=== PATIENT | female | born 1990 | race African-American/Black ===

== ENCOUNTER 2022-12-25 13:09 | Emergency (ER) | payer OTHER ==
[~2022-12-25] VITALS: Ht 149.9 cm; Wt 59.0 kg
[2022-12-25 13:22] VITALS: BP 115/68; TEMP 98.7; O2SAT 100
[2022-12-25 13:24] VITALS: PULSE 82; RESP 16
== END 2022-12-25 16:14 | disposition home or self-care (01) ==
LOC: ER 13:28
DX: Z00.00 Encounter for general adult medical examination without abnormal findings (principal); F12.10 Cannabis abuse, uncomplicated; F15.10 Other stimulant abuse, uncomplicated
CPT/HCPCS: 99281

== ENCOUNTER 2024-09-14 09:01 | Emergency (ER) | payer SELFPAY ==
[~2024-09-14] VITALS: Ht 160 cm; Wt 63.0 kg
[2024-09-14 09:05] VITALS: O2SAT 98
[2024-09-14 09:43] LABS: BASOPHILS % 0.6 % (0.0-2.0); EOSINOPHILS % 2.4 % (0.0-5.0); HEMATOCRIT. 35.9 % (36.0-48.0); HEMOGLOBIN. 11.5 g/dL (12.0-16.0); MEAN CORPUSCULAR HEMOGLOBIN 26.7 pg (28.0-32.0); MEAN CORPUSCULAR VOLUME 83.7 fL (81.0-99.0); MONOCYTES % 9.1 % (2.0-8.0); NEUTROPHILS % 65.9 % (40.0-76.0); PLATELET 316 x1000/uL (130-400); RED BLOOD CELL COUNT 4.29 mill/uL (4.2-5.4); WHITE BLOOD COUNT 9.4 x1000/uL (4.5-11.0)
[2024-09-14 09:58] LABS: CHLORIDE 101 mEq/L (98-107); POTASSIUM 3.7 mEq/L (3.5-5.1); SODIUM 136 mEq/L (136-145)
[2024-09-14 09:59] LABS: CALCIUM 9.1 mg/dL (8.7-10.4); CARBON DIOXIDE 26 mEq/L (21-32)
[2024-09-14 10:04] LABS: CREATININE 0.7 mg/dL (0.6-1.0); GLUCOSE 79 mg/dL (70-105); UREA NITROGEN BLOOD 12 mg/dL (9-23)
[2024-09-14 10:05] LABS: ETHANOL BLOOD < 10 mg/dL (<10)
[2024-09-14 10:06] LABS: ACETAMINOPHEN < 2 ug/mL (10-30)
[2024-09-14 10:24] LABS: HCG SCREEN NEGATIVE
[2024-09-14 11:02] VITALS: BP 130/72; PULSE 69; RESP 18; TEMP 36.7; O2SAT 98
== END 2024-09-14 11:40 | disposition home or self-care (01) ==
LOC: ER 09:01
DX: R44.1 Visual hallucinations (principal); F12.90 Cannabis use, unspecified, uncomplicated; Z79.899 Other long term (current) drug therapy
CPT/HCPCS: 36415; 80048; 80307; 80320; 80329; 84703; 85025; 99283; G0480

== ENCOUNTER 2024-09-28 08:24 | Emergency (ER) | payer SELFPAY ==
[~2024-09-28] VITALS: Ht 165.1 cm; Wt 59.0 kg
[2024-09-28 08:40] VITALS: O2SAT 100
[2024-09-28] MEDS ORDERED: LORAZEPAM 2MG/ML INJ IM ONE (08:45)
[2024-09-28] MEDS: LORAZEPAM 2MG/ML UD SYRINGE IM SCH (08:49)
[2024-09-28] MEDS: HALOPERIDOL LACTATE 5MG/ML VIAL IM ONE (08:50)
[2024-09-28 09:18] LABS: BASOPHILS % 0.7 % (0.0-2.0); EOSINOPHILS % 1.2 % (0.0-5.0); HEMATOCRIT. 35.6 % (36.0-48.0); HEMOGLOBIN. 11.5 g/dL (12.0-16.0); LYMPHOCYTES % 15.8 % (20.0-50.0); MEAN CORPUSCULAR HEMOGLOBIN 25.8 pg (28.0-32.0); MEAN CORPUSCULAR HGB CONC 32.2 g/dL (31.0-37.0); MEAN CORPUSCULAR VOLUME 80.1 fL (81.0-99.0); MEAN PLATELET VOLUME 8.2 fl (7.4-10.4); NEUTROPHILS % 76.3 % (40.0-76.0); PLATELET 496 x1000/uL (130-400); RED BLOOD CELL COUNT 4.44 mill/uL (4.2-5.4); RED CELL DISTRIBUTION WIDTH 14.7 % (11.6-14.6); WHITE BLOOD COUNT 13.8 x1000/uL (4.5-11.0)
[2024-09-28 09:25] LABS: CHLORIDE 105 mEq/L (98-107); HCG SCREEN NEGATIVE; POTASSIUM 3.6 mEq/L (3.5-5.1); SODIUM 139 mEq/L (136-145)
[2024-09-28 09:26] LABS: CALCIUM 9.9 mg/dL (8.7-10.4); CARBON DIOXIDE 24 mEq/L (21-32)
[2024-09-28 09:31] LABS: CREATININE 0.8 mg/dL (0.6-1.0); GLUCOSE 96 mg/dL (70-105); UREA NITROGEN BLOOD 8 mg/dL (9-23)
[2024-09-28 09:32] LABS: ETHANOL BLOOD < 10 mg/dL (<10)
[2024-09-28 09:33] LABS: ACETAMINOPHEN < 2 ug/mL (10-30)
[2024-09-28 09:50] LABS: CLARITY URINE CLEAR (CLEAR); COLOR URINE YELLOW (YELLOW); GLUCOSE URINE NEGATIVE (NEGATIVE); KETONES URINE NEGATIVE (NEGATIVE); LEUKOCYTE ESTERASE URINE TRACE (NEGATIVE); NITRITE URINE NEGATIVE (NEGATIVE); OCCULT BLOOD URINE NEGATIVE (NEGATIVE); PROTEIN URINE NEGATIVE (NEGATIVE); SPECIFIC GRAVITY URINE 1.013 (1.005-1.030)
[2024-09-28 10:01] LABS: *AMPHETAMINES SCREEN URINE PRESUMPTIVE POSITIVE (NEGATIVE); *BARBITURATES SCREEN URINE NEGATIVE (NEGATIVE); *BENZODIAZEPINES SCREEN URINE NEGATIVE (NEGATIVE); *COCAINE SCREEN URINE NEGATIVE (NEGATIVE); METHADONE URINE SCREEN NEGATIVE (NEGATIVE)
[2024-09-28 10:02] LABS: CANNABINOID URINE SCREEN PRESUMPTIVE POSITIVE (NEGATIVE); OPIATES URINE SCREEN NEGATIVE (NEGATIVE); PHENCYCLIDINE URINE SCREEN NEGATIVE (NEGATIVE)
[2024-09-28 10:07] LABS: BACTERIA URINE 2+; RBC URINE 0-2 /hpf (0-2); SQUAMOUS EPITHELIAL CELL URINE 2+ /lpf (RARE/1+); YEAST URINE NONE SEEN
[2024-09-28 10:18] LABS: ECSTASY MDMA SCREEN URINE CONF.TEST INDICATED (NEGATIVE)
[2024-09-28] MEDS ORDERED: CEPHALEXIN 250MG CAPSULE PO STA (10:57)
[2024-09-28] MEDS: MUPIROCIN 2% OINT 15GM TOP SCH (14:00)
[2024-09-28] MEDS: CEPHALEXIN 250MG CAPSULE PO SCH (15:02)
[2024-09-28] MEDS: OLANZAPINE 5MG TABLET PO SCH (20:52)
[2024-09-29] MEDS ORDERED: CEPH500T MT (13:02)
[2024-09-29 15:06] VITALS: BP 124/67; PULSE 94; RESP 14; TEMP 36.9; O2SAT 98
== END 2024-09-29 15:17 | disposition home or self-care (01) ==
LOC: ER 08:24
DX: R45.1 Restlessness and agitation (principal); N61.0 Mastitis without abscess; F14.10 Cocaine abuse, uncomplicated; F12.90 Cannabis use, unspecified, uncomplicated; N39.0 Urinary tract infection, site not specified; F15.90 Other stimulant use, unspecified, uncomplicated; Z20.822 Contact with and (suspected) exposure to COVID-19; Z79.899 Other long term (current) drug therapy
CPT/HCPCS: 80305; 80048; 81003; 80307; 80329; 80320; 84703; 85025; 36415; 96372; 99285; 87426; J1630; J2060; Z7610 ×2; G0480

== ENCOUNTER 2024-10-23 03:52 | Emergency (ER) | payer SELFPAY ==
[~2024-10-23] VITALS: Ht 149.9 cm; Wt 53.0 kg
[~2024-10-23 03:52] MED LIST: CEPH500T MT
[2024-10-23 04:04] VITALS: TEMP 36.6; O2SAT 98
[2024-10-23 08:03] LABS: HEMATOCRIT. 34.2 % (36.0-48.0); HEMOGLOBIN. 10.8 g/dL (12.0-16.0); MEAN PLATELET VOLUME 8.2 fl (7.4-10.4); PLATELET 539 x1000/uL (130-400); RED BLOOD CELL COUNT 4.33 mill/uL (4.2-5.4); RED CELL DISTRIBUTION WIDTH 15.4 % (11.6-14.6)
[2024-10-23 08:13] LABS: CREATININE 0.7 mg/dL (0.6-1.0)
[2024-10-23 08:14] LABS: UREA NITROGEN BLOOD 12 mg/dL (9-23)
[2024-10-23 08:15] LABS: ASPARTATE AMINOTRANSFERASE 18 IU/L (<34)
[2024-10-23 08:16] LABS: BILIRUBIN TOTAL 0.5 mg/dL (0.1-1.0); PROTEIN TOTAL 7.6 g/dL (6.0-8.3)
[2024-10-23 08:17] LABS: HCG SCREEN NEGATIVE
[2024-10-23 08:39] VITALS: TEMP 97.8
[2024-10-23] MEDS: ACETAMINOPHEN 325MG TABLET PO ONE (08:39)
[2024-10-23 08:40] VITALS: BP 115/79; PULSE 64; RESP 18; O2SAT 100
[2024-10-23 08:55] LABS: BAND% 41.0 % (1.0-6.0); BASOPHILS % MANUAL 1.0 % (0.0-2.0); EOSINOPHILS % MANUAL 4.0 % (0.0-5.0); LYMPHOCYTES % MANUAL 17.0 % (20.0-60.0); MONOCYTES % MANUAL 16.0 % (2.0-8.0); NEUTROPHILS % MANUAL 21.0 % (45.0-75.0); PLATELET ESTIMATE INCREASED
== END 2024-10-23 09:00 | disposition home or self-care (01) ==
LOC: ER 03:52
DX: M25.561 Pain in right knee (principal); R10.13 Epigastric pain; R51.9 Headache, unspecified
CPT/HCPCS: 36415; 73562; 80053; 81025; 84703; 85025; 93971; 99284

== ENCOUNTER 2024-12-23 08:06 | Emergency (ER) | payer MEDICAID ==
[~2024-12-23] VITALS: Ht 167.6 cm; Wt 50.0 kg
[2024-12-23 08:14] VITALS: O2SAT 98
[2024-12-23 08:42] LABS: BASOPHILS % 0.7 % (0.0-2.0); EOSINOPHILS % 4.0 % (0.0-5.0); HEMATOCRIT. 34.5 % (36.0-48.0); HEMOGLOBIN. 10.5 g/dL (12.0-16.0); LYMPHOCYTES % 11.2 % (20.0-50.0); MEAN PLATELET VOLUME 8.5 fl (7.4-10.4); MONOCYTES % 6.4 % (2.0-8.0); NEUTROPHILS % 77.7 % (40.0-76.0); PLATELET 447 x1000/uL (130-400); RED BLOOD CELL COUNT 4.43 mill/uL (4.2-5.4); RED CELL DISTRIBUTION WIDTH 16.8 % (11.6-14.6)
[2024-12-23 08:53] LABS: HCG SCREEN NEGATIVE
[2024-12-23 08:56] LABS: CREATININE 0.7 mg/dL (0.6-1.0); ETHANOL BLOOD < 10 mg/dL (<10); UREA NITROGEN BLOOD 12 mg/dL (9-23)
[2024-12-23 09:02] LABS: CLARITY URINE CLEAR (CLEAR); COLOR URINE YELLOW (YELLOW); GLUCOSE URINE NEGATIVE (NEGATIVE); KETONES URINE NEGATIVE (NEGATIVE); LEUKOCYTE ESTERASE URINE NEGATIVE (NEGATIVE); NITRITE URINE NEGATIVE (NEGATIVE); OCCULT BLOOD URINE NEGATIVE (NEGATIVE); PH URINE 5.5 (4.5-8.0); PROTEIN URINE NEGATIVE (NEGATIVE); SPECIFIC GRAVITY URINE 1.020 (1.005-1.030); UROBILINOGEN URINE 0.2 E.U./dL (0.2-1.0)
[2024-12-23] MEDS: MULTIVITAMINS,THER W-MINERALS TABLET PO SCH (09:13)
[2024-12-23 09:17] LABS: *AMPHETAMINES SCREEN URINE PRESUMPTIVE POSITIVE (NEGATIVE); *BENZODIAZEPINES SCREEN URINE NEGATIVE (NEGATIVE)
[2024-12-23 09:18] LABS: *BARBITURATES SCREEN URINE NEGATIVE (NEGATIVE); *COCAINE SCREEN URINE NEGATIVE (NEGATIVE); CANNABINOID URINE SCREEN NEGATIVE (NEGATIVE); ECSTASY MDMA SCREEN URINE NEGATIVE (NEGATIVE); METHADONE URINE SCREEN NEGATIVE (NEGATIVE); OPIATES URINE SCREEN NEGATIVE (NEGATIVE); PHENCYCLIDINE URINE SCREEN NEGATIVE (NEGATIVE)
[2024-12-24 12:10] VITALS: BP 112/64; PULSE 82; RESP 16; TEMP 37.1; O2SAT 100
== END 2024-12-24 12:20 | disposition home or self-care (01) ==
LOC: ER 08:13
DX: F25.9 Schizoaffective disorder, unspecified (principal); F19.10 Other psychoactive substance abuse, uncomplicated; Z59.00 Homelessness unspecified; Z79.899 Other long term (current) drug therapy; Z20.822 Contact with and (suspected) exposure to COVID-19
CPT/HCPCS: 36415; 80048; 80305; 80307; 80320; 80329; 81003; 81025; 84703; 85025; 87426; 93005; 99285; G0480

== ENCOUNTER 2025-01-05 08:21 | Emergency (ER) | payer MEDICAID ==
[~2025-01-05] VITALS: Ht 157.5 cm; Wt 53.0 kg
[2025-01-05 08:28] VITALS: TEMP 36.9; O2SAT 100
[2025-01-05] MEDS ORDERED: PNV1TABL76 MT (12:56)
[2025-01-05 13:16] VITALS: BP 118/79; PULSE 90; RESP 16; O2SAT 100
== END 2025-01-05 13:18 | disposition home or self-care (01) ==
LOC: ER 08:21
DX: R11.0 Nausea (principal); I10 Essential (primary) hypertension; Z76.0 Encounter for issue of repeat prescription; F20.9 Schizophrenia, unspecified; Z79.899 Other long term (current) drug therapy
CPT/HCPCS: 99283

== ENCOUNTER 2025-01-14 08:59 | Emergency (ER) | payer MEDICAID ==
[~2025-01-14] VITALS: Ht 165.1 cm; Wt 53.0 kg
[~2025-01-14 08:59] MED LIST changes: +PNV1TABL76 MT
[2025-01-14 09:02] VITALS: BP 131/81; PULSE 90; RESP 16; TEMP 37.4; O2SAT 99
== END 2025-01-14 09:43 | disposition home or self-care (01) ==
LOC: ER 08:59
DX: Z32.00 Encounter for pregnancy test, result unknown (principal); F20.9 Schizophrenia, unspecified
CPT/HCPCS: 99283

== ENCOUNTER 2025-01-19 08:03 | Emergency (ER) | payer MEDICAID ==
[~2025-01-19] VITALS: Ht 165.1 cm; Wt 60.0 kg
[2025-01-19 08:09] VITALS: O2SAT 99
[2025-01-19 08:15] VITALS: BP 140/83; PULSE 66; RESP 18; TEMP 36.9; O2SAT 99
[2025-01-19 08:40] LABS: BASOPHILS % 0.9 % (0.0-2.0); EOSINOPHILS % 2.3 % (0.0-5.0); HEMATOCRIT. 37.2 % (36.0-48.0); HEMOGLOBIN. 11.6 g/dL (12.0-16.0); LYMPHOCYTES % 16.1 % (20.0-50.0); MEAN PLATELET VOLUME 8.5 fl (7.4-10.4); MONOCYTES % 7.0 % (2.0-8.0); NEUTROPHILS % 73.7 % (40.0-76.0); PLATELET 476 x1000/uL (130-400); RED BLOOD CELL COUNT 4.77 mill/uL (4.2-5.4); RED CELL DISTRIBUTION WIDTH 16.7 % (11.6-14.6)
[2025-01-19 08:53] LABS: HCG SCREEN NEGATIVE
[2025-01-19 08:54] LABS: CREATININE 0.7 mg/dL (0.6-1.0)
[2025-01-19 08:55] LABS: UREA NITROGEN BLOOD 11 mg/dL (9-23)
[2025-01-19 10:13] LABS: *AMPHETAMINES SCREEN URINE PRESUMPTIVE POSITIVE (NEGATIVE); *BARBITURATES SCREEN URINE NEGATIVE (NEGATIVE); *BENZODIAZEPINES SCREEN URINE NEGATIVE (NEGATIVE); *COCAINE SCREEN URINE NEGATIVE (NEGATIVE)
[2025-01-19 10:14] LABS: CANNABINOID URINE SCREEN NEGATIVE (NEGATIVE); ECSTASY MDMA SCREEN URINE NEGATIVE (NEGATIVE); METHADONE URINE SCREEN NEGATIVE (NEGATIVE); OPIATES URINE SCREEN NEGATIVE (NEGATIVE); PHENCYCLIDINE URINE SCREEN NEGATIVE (NEGATIVE)
== END 2025-01-19 10:37 | disposition home or self-care (01) ==
LOC: ER 08:03
DX: F20.9 Schizophrenia, unspecified (principal); F31.9 Bipolar disorder, unspecified; Z79.899 Other long term (current) drug therapy; Z20.822 Contact with and (suspected) exposure to COVID-19
CPT/HCPCS: 36415; 80048; 80305; 80307; 80320; 80329; 84703; 85025; 87426; 99283; G0480

== ENCOUNTER 2025-02-19 08:52 | Emergency (ER) | payer MEDICAID ==
[~2025-02-19] VITALS: Ht 157.5 cm; Wt 52.0 kg
[2025-02-19 08:55] VITALS: O2SAT 100
[2025-02-19 11:53] VITALS: BP 137/70; PULSE 64; RESP 16; TEMP 36.9; O2SAT 100
== END 2025-02-19 12:00 | disposition home or self-care (01) ==
LOC: ER 08:52
DX: F20.9 Schizophrenia, unspecified (principal); F31.9 Bipolar disorder, unspecified; F15.90 Other stimulant use, unspecified, uncomplicated
CPT/HCPCS: 81025; 99283

== ENCOUNTER 2025-02-27 10:03 | Emergency (ER) | payer MEDICAID ==
[~2025-02-27] VITALS: Ht 157.5 cm; Wt 58.0 kg
[2025-02-27 10:19] VITALS: O2SAT 98
[2025-02-27] MEDS ORDERED: BENZ100C86 MT (11:23)
[2025-02-27] MEDS ORDERED: TOPUD MT (11:23)
[2025-02-27 12:37] VITALS: BP 126/90; PULSE 95; RESP 17; TEMP 36.7; O2SAT 98
[2025-02-27 13:09] LABS: INFLUENZA TYPE A Presumptive Negative (Pres. Neg.)
[2025-02-27 13:10] LABS: INFLUENZA TYPE B Presumptive Negative (Pres. Neg.); RESPIRATORY SYNCYTIAL VIRUS Not Detected (Not Detectd)
== END 2025-02-27 12:38 | disposition home or self-care (01) ==
LOC: ER 10:03
DX: J06.9 Acute upper respiratory infection, unspecified (principal); F20.9 Schizophrenia, unspecified; F31.9 Bipolar disorder, unspecified; R05.9 Cough, unspecified
CPT/HCPCS: 81025; 87420; 87426; 87804; 99283

== ENCOUNTER 2025-03-10 08:19 | Emergency (ER) | payer MEDICAID ==
[~2025-03-10] VITALS: Ht 152.4 cm; Wt 62.0 kg
[~2025-03-10 08:19] MED LIST changes: +BENZ100C86 MT; +TOPUD MT
[2025-03-10 08:29] VITALS: O2SAT 100
[2025-03-10 09:41] LABS: CLARITY URINE CLEAR (CLEAR); COLOR URINE YELLOW (YELLOW); GLUCOSE URINE NEGATIVE (NEGATIVE); KETONES URINE NEGATIVE (NEGATIVE); LEUKOCYTE ESTERASE URINE NEGATIVE (NEGATIVE); NITRITE URINE NEGATIVE (NEGATIVE); OCCULT BLOOD URINE NEGATIVE (NEGATIVE); PH URINE 5.5 (4.5-8.0); PROTEIN URINE NEGATIVE (NEGATIVE); SPECIFIC GRAVITY URINE 1.014 (1.005-1.030); UROBILINOGEN URINE 0.2 E.U./dL (0.2-1.0)
[2025-03-10 09:53] LABS: *AMPHETAMINES SCREEN URINE PRESUMPTIVE POSITIVE (NEGATIVE); *BARBITURATES SCREEN URINE NEGATIVE (NEGATIVE); *BENZODIAZEPINES SCREEN URINE NEGATIVE (NEGATIVE); *COCAINE SCREEN URINE NEGATIVE (NEGATIVE); CANNABINOID URINE SCREEN NEGATIVE (NEGATIVE); ECSTASY MDMA SCREEN URINE NEGATIVE (NEGATIVE); METHADONE URINE SCREEN NEGATIVE (NEGATIVE); OPIATES URINE SCREEN NEGATIVE (NEGATIVE); PHENCYCLIDINE URINE SCREEN NEGATIVE (NEGATIVE)
[2025-03-10 11:08] LABS: BASOPHILS % 0.8 % (0.0-2.0); EOSINOPHILS % 3.9 % (0.0-5.0); HEMATOCRIT. 36.2 % (36.0-48.0); HEMOGLOBIN. 11.5 g/dL (12.0-16.0); LYMPHOCYTES % 19.4 % (20.0-50.0); MEAN PLATELET VOLUME 8.9 fl (7.4-10.4); MONOCYTES % 6.3 % (2.0-8.0); NEUTROPHILS % 69.6 % (40.0-76.0); PLATELET 424 x1000/uL (130-400); RED BLOOD CELL COUNT 4.61 mill/uL (4.2-5.4); RED CELL DISTRIBUTION WIDTH 16.4 % (11.6-14.6)
[2025-03-10 11:23] LABS: CREATININE 0.8 mg/dL (0.6-1.0); UREA NITROGEN BLOOD 16 mg/dL (9-23)
[2025-03-10 11:24] LABS: ETHANOL BLOOD < 10 mg/dL (<10)
[2025-03-10 11:29] LABS: B-HCG QUANTITATIVE < 1 mIU/mL (<6)
[2025-03-10 11:37] LABS: HCG SCREEN NEGATIVE
[2025-03-10] MEDS ORDERED: ABIL5 MT (13:23)
[2025-03-10 13:56] VITALS: BP 115/71; PULSE 75; RESP 16; TEMP 37.1; O2SAT 100
== END 2025-03-10 13:58 | disposition home or self-care (01) ==
LOC: ER 08:53
DX: F20.9 Schizophrenia, unspecified (principal); F31.9 Bipolar disorder, unspecified; Z20.822 Contact with and (suspected) exposure to COVID-19
CPT/HCPCS: 99283; 87426; 80048; 81003; 81025; 80307; 84703; 84702; 85025; 36415; G0480; 80305; 80320; 80329

== ENCOUNTER 2025-03-18 07:37 | Emergency (ER) | payer MEDICAID ==
[~2025-03-18] VITALS: Ht 149.9 cm; Wt 63.0 kg
[~2025-03-18 07:37] MED LIST changes: +ABIL5 MT
[2025-03-18 07:41] VITALS: PULSE 71; RESP 18; O2SAT 99
[2025-03-18 07:48] VITALS: BP 127/85; TEMP 36.6; O2SAT 99
[2025-03-18] MEDS ORDERED: TOPUD PO (08:17)
[2025-03-18] MEDS: ACETAMINOPHEN 325MG TABLET PO ONE (08:22)
== END 2025-03-18 10:17 | disposition home or self-care (01) ==
LOC: ER 07:37
DX: R05.9 Cough, unspecified (principal); B34.9 Viral infection, unspecified; F20.9 Schizophrenia, unspecified; Z79.899 Other long term (current) drug therapy
CPT/HCPCS: 81025; 99282